=== PATIENT | male | born 1970 | race Hispanic/Latino ===

== ENCOUNTER → 2017-12-06 | Day surgery (SDC) | payer OTHER ==
[~2017-12-06] MED LIST: ATORVASTATIN CA20 MG PO; BACITRACIN ZINC 15 GM OINT ONE; BUPIVACAINE 0.25% 30ML SDV INJ ONE; BUPIVACAINE HCL 0.5% INJ 30 ML VIAL INJ ONE; CEFAZOLIN SOD 1 GM VIAL ONE; DEXAMETHASONE SOD PHOS INJ 4 MG/ML VIAL ONE; DOXYCYCLINE HY100 MG PO; EPHEDRINE SULFATE INJ 50 MG/10 ML SYR ONE; FENTANYL CITRATE/PF 100MCG/2 ML INJ ONE; FUROSEMIDE40 MG PO; IOPAMIDOL 610MG/1ML 300 MG/ML VIAL IV ONE; LEVEMIR100 UNIT/1 SC; LEVIMIR; LIDOCAINE HCL 2% LOCAL INJ 5 ML SDV VIAL INJ ONE; LOSARTAN POTASS25 MG PO; METOPROLOL TART50 MG PO; MIDAZOLAM HCL 2 MG/2 ML VIAL ONE; NEOSTIGMINE 1 MG/ML 10ML VIAL ONE; ONDANSETRON HCL INJ 2 MG/ML VIAL ONE; PROPOFOL IV EMULSION 10 MG/ML 20 ML VIAL ONE; SEVOFLURANE INHAL SOLN 250 ML PEN BTL ONE; SODIUM CHLORIDE 0.45% 1,000 ML ONE
--- NOTE | 2017-12-06 17:36 | Operative Report ---
DATE OF PROCEDURE: December 06, 2017 SERVICE: Urology PREOPERATIVE DIAGNOSIS 1. Phimosis. 2. Urinary tract infection. 3. History of Becky's gangrene of the scrotum. 4. Obesity. POSTOPERATIVE DIAGNOSIS 1. Phimosis. 2. Urinary tract infection. 3. History of Becky's gangrene of the scrotum. 4. Obesity. OPERATION PERFORMED 1. Cystoscopy and bilateral retrograde pyelograms under fluoroscopic control. 2. Interpretation of x-ray. Radiologist not present. 3. Supervision of fluoroscopy. Radiologist not present. 4. Circumcision. SURGEON: Brittney Sanchez MD TENSIONING MACHINE OPERATOR: None. ANESTHESIA: General. CLINICAL INDICATION NOTE: This is a 46-year-old patient, had gangrene necrosis of the scrotum that healed quite well. Patient has phimosis and history of UTI. He was brought for cystoscopy, retrograde and circumcision. Procedure was discussed with the patient. Potential benefit and complications discussed, explained and accepted. DESCRIPTION OF PROCEDURE AND FINDINGS: After proper level of anesthesia was achieved the patient was placed in lithotomy position, prepped and draped in sterile fashion. Urethra inspected, is unremarkable. The is patent. Bladder mucosa is normal. No tumor or foreign bodies identified. Cone-tip catheter was then used and bilateral retrogrades were done demonstrating normal upper tracts and ureters. No obstruction. Following this the bladder was emptied. Patient was re-prepped and circumcision was done. Dorsal slit was done first and then a ventral and excessive skin on both sides were excised. Any visible bleeding points were coagulated or ligated. The skin was closed with 3-0 chronic catgut interrupted as well as running. Following this, bacitracin ointment was placed and Tegaderm dressing. Patient tolerated the procedure well. A penile block was obtained after the procedure using Marcaine a quarter percent. He was transferred in satisfactory condition to recovery. No blood loss. He will be followed as outpatient. Job#: [id number] CEFERINO
== END | disposition home or self-care (01) ==
LOC: OR 08:41
PROVIDERS: ATTEND Urology
CPT/HCPCS: 36415; 74420; 82948; J0690; J1100; J2001; J2250; J2405; J2710

== ENCOUNTER → 2018-05-01 | Outpatient (CLI) | payer OTHER ==
[~2018-05-01] MED LIST changes: -BACITRACIN ZINC 15 GM OINT ONE; -BUPIVACAINE 0.25% 30ML SDV INJ ONE; -BUPIVACAINE HCL 0.5% INJ 30 ML VIAL INJ ONE; -CEFAZOLIN SOD 1 GM VIAL ONE; -DEXAMETHASONE SOD PHOS INJ 4 MG/ML VIAL ONE; -EPHEDRINE SULFATE INJ 50 MG/10 ML SYR ONE; -FENTANYL CITRATE/PF 100MCG/2 ML INJ ONE; -IOPAMIDOL 610MG/1ML 300 MG/ML VIAL IV ONE; -LIDOCAINE HCL 2% LOCAL INJ 5 ML SDV VIAL INJ ONE; -MIDAZOLAM HCL 2 MG/2 ML VIAL ONE; -NEOSTIGMINE 1 MG/ML 10ML VIAL ONE; -ONDANSETRON HCL INJ 2 MG/ML VIAL ONE; -PROPOFOL IV EMULSION 10 MG/ML 20 ML VIAL ONE; -SEVOFLURANE INHAL SOLN 250 ML PEN BTL ONE; -SODIUM CHLORIDE 0.45% 1,000 ML ONE
--- NOTE | 2018-05-01 16:26 | Diagnostic Imaging Report ---
EXAM: CT Abdomen and Pelvis WITHOUT contrast INDICATION: Microscopic hematuria. Hypertension. Diabetes. Appendectomy. Gangrene with necrotizing fasciitis COMPARISON: None. TECHNIQUE: Abdomen and pelvis were scanned utilizing a multidetector helical scanner from the lung base to the pubic symphysis without administration of IV contrast. Absence of intravenous contrast decreases sensitivity for detection of focal lesions and vascular pathology. Coronal and sagittal reformations were obtained. Routine protocol was performed. All CT scans are performed using radiation dose reduction techniques. Technical factors are evaluated and adjusted to ensure appropriate moderation of exposure. Automated dose management technology is applied to adjust the radiation dose to minimize exposure while achieving a diagnostic-quality image. IV CONTRAST: None. ORAL CONTRAST: Water RADIATION DOSE: Total DLP: 627.46 mGy*cm Estimated effective dose: (DLP x 0.015 x size factor) mSv COMPLICATIONS: None FINDINGS: LINES and TUBES: None. LOWER THORAX: Moderate sized pleural effusions with associated scarring/atelectasis in the lung bases. HEPATOBILIARY: No focal hepatic lesions. No biliary ductal dilation. GALLBLADDER: Gallstone in the lumen of the gallbladder. No wall thickening. SPLEEN: No splenomegaly. PANCREAS: No focal masses or ductal dilatation. ADRENALS: No adrenal nodules KIDNEYS/URETERS: No hydronephrosis. No cystic or solid mass lesions. No stones. GI TRACT: No abnormal distention, wall thickening, or evidence of bowel obstruction. PELVIC ORGANS/BLADDER: The urinary bladder and remainder of the visualized pelvic structures are otherwise grossly unremarkable. LYMPH NODES: Prominent inguinal, pelvic and retroperitoneal/periaortic lymph nodes are seen which may be reactive. VESSELS: Scattered vascular calcifications.. PERITONEUM / RETROPERITONEUM: No free air or fluid. BONES: Unremarkable. SOFT TISSUES: Mild anasarca. Mild inflammatory change surrounding the penis and anterior lower pelvis. IMPRESSION: 1. No urinary tract calcifications are seen. There is no hydronephrosis, hydroureter or perinephric fat stranding. 2. Moderate sized pleural effusion with associated scarring/atelectasis in the lung bases. 3. Gallstones without ductal dilatation seen. 4. Prominent inguinal, pelvic and retroperitoneal/periaortic lymph nodes are seen which may be reactive. 5. Mild anasarca. Mild inflammatory change surrounding the penis and anterior lower pelvis. Signed by: Dr. Preet Guillen M.D. on 05/01/2018 4:22 PM
== END ==
LOC: CT 15:02
PROVIDERS: ATTEND Urology
DX: R31.29 Other microscopic hematuria (principal)
CPT/HCPCS: 74176

== ENCOUNTER → 2021-12-30 | Day surgery (SDC) | payer OTHER ==
[~2021-12-30] MED LIST changes: +ACETAMINOPHEN 1000 MG/100 ML 100 ML IV ONE; +BUPIVACAINE HC 0.75% PF 10ML VIAL INJ ONE; +DEXAMETHASONE SOD PHOS INJ 4 MG/ML SDV ONE; +DIALYVITE 800-1 EAC1 PO; +FENTANYL CITRATE/PF 100MCG/2 ML INJ ONE; +GLYCOPYRROLATE INJ 0.2 MG/ML VIAL ONE; +LIDOCAINE HCL 2% LOCAL INJ 5 ML SDV VIAL INJ ONE; +MIDAZOLAM HCL 2 MG/2 ML VIAL ONE; +NEOSTIGMINE 1 MG/ML 10ML VIAL ONE; +ONDANSETRON HCL INJ 2MG/ML 2ML 2 MG/ML VIAL ONE; +PLAVIX75 MG PO; +POVIDONE IODINE 0.05% 0.05 % ML PO ONE; +PROPOFOL IV EMULSION 10 MG/ML 20 ML VIAL ONE; +RENVELA0.8 GM PO; +ROCURONIUM BROMIDE 10 MG/ML 5ML VIAL IV ONE; +SEVOFLURANE INHAL SOLN 250 ML PEN BTL ONE; +SODIUM CHLORIDE 0.9% 500ML 500 ML ONE; +ULTRACET TABLE1 EACH PO; +VITAMIN D350 MCG PO; +ZETIA10 MG PO
[2021-12-30 08:45] LABS: BASOPHILS # (AUTO) 0.1 (0.0-0.1); BASOPHILS % 0.6 % (0.0-1.0); EOSINOPHILS # (AUTO) 0.2 (0.0-0.4); EOSINOPHILS % 1.3 % (0.0-6.0); HEMATOCRIT 34.1 % (38.2-49.6); HEMOGLOBIN 10.6 g/dL (14.0-18.0); LYMPHOCYTES # (AUTO) 1.8 (1.0-3.2); LYMPHOCYTES % 11.8 % (18.0-39.1); MEAN CORPUSCULAR HEMOGLOBIN 30.5 pg (28-32); MEAN CORPUSCULAR HGB CONC 31.1 g/dL (31-35); MEAN CORPUSCULAR VOLUME 98.3 fL (81-99); MONOCYTES # (AUTO) 1.3 (0.2-0.8); MONOCYTES % 8.4 % (4.4-11.3); NEUTROPHILS # (AUTO) 12.1 (2.1-6.9); NEUTROPHILS % 77.5 % (38.7-80.0); PLATELET COUNT 359 x10e3/uL (140-360); RED BLOOD COUNT 3.47 x10e6/uL (4.3-5.7); RED CELL DISTRIBUTION WIDTH 14.1 % (11.7-14.4)
[2021-12-30 09:00] LABS: INR 1.08
[2021-12-30 09:01] LABS: PARTIAL THROMBOPLASTIN TIME 51.7 seconds (23.8-35.5)
[2021-12-30 09:07] LABS: ANION GAP 16.9 mmol/L (8-16); CALCIUM 8.2 mg/dL (8.4-10.2); CREATININE, SERUM 6.32 mg/dL (0.72-1.25); POTASSIUM 3.9 mmol/L (3.5-5.1)
[2021-12-30 10:55] VITALS: BP 115/72
== END | disposition home or self-care (01) ==
LOC: OR 07:50
PROVIDERS: ATTEND Surgery
DX: E11.22 Type 2 diabetes mellitus with diabetic chronic kidney disease (principal); I12.0 Hypertensive chronic kidney disease with stage 5 chronic kidney disease or end stage renal disease; N18.6 End stage renal disease; T85.611A Breakdown (mechanical) of intraperitoneal dialysis catheter, initial encounter; K66.0 Peritoneal adhesions (postprocedural) (postinfection); F41.9 Anxiety disorder, unspecified; Y83.8 Other surgical procedures as the cause of abnormal reaction of the patient, or of later complication, without mention of misadventure at the time of the procedure; Z88.6 Allergy status to analgesic agent; Z88.8 Allergy status to other drugs, medicaments and biological substances; Z01.810 Encounter for preprocedural cardiovascular examination; Z01.812 Encounter for preprocedural laboratory examination; Z20.822 Contact with and (suspected) exposure to COVID-19; Z79.82 Long term (current) use of aspirin; Z79.02 Long term (current) use of antithrombotics/antiplatelets; Z79.899 Other long term (current) drug therapy; Z99.2 Dependence on renal dialysis
CPT/HCPCS: 36415; 49325; 71046; 80048; 82948; 85025; 85610; 85730; 93005; C1713; J0131; J0690; J1100; J2001; J2250; J2405; J2704; J2710; J3010; J7040; U0002

== ENCOUNTER 2024-12-02 18:17 | Emergency (ER) | payer MEDICARE, OTHER ==
[~2024-12-02] VITALS: Ht 182.9 cm; Wt 88.5 kg
[~2024-12-02 18:17] MED LIST changes: -ACETAMINOPHEN 1000 MG/100 ML 100 ML IV ONE; -BUPIVACAINE HC 0.75% PF 10ML VIAL INJ ONE; +CARVEDILOL12.5 MG PO; -DEXAMETHASONE SOD PHOS INJ 4 MG/ML SDV ONE; +ENTRESTO 97 MG1 EACH PO; -FENTANYL CITRATE/PF 100MCG/2 ML INJ ONE; -GLYCOPYRROLATE INJ 0.2 MG/ML VIAL ONE; -LIDOCAINE HCL 2% LOCAL INJ 5 ML SDV VIAL INJ ONE; -MIDAZOLAM HCL 2 MG/2 ML VIAL ONE; -NEOSTIGMINE 1 MG/ML 10ML VIAL ONE; -ONDANSETRON HCL INJ 2MG/ML 2ML 2 MG/ML VIAL ONE; -POVIDONE IODINE 0.05% 0.05 % ML PO ONE; -PROPOFOL IV EMULSION 10 MG/ML 20 ML VIAL ONE; -ROCURONIUM BROMIDE 10 MG/ML 5ML VIAL IV ONE; -SEVOFLURANE INHAL SOLN 250 ML PEN BTL ONE; -SODIUM CHLORIDE 0.9% 500ML 500 ML ONE; +ULTRAM 50MG50 MG PO
[2024-12-02 19:50] LABS: BASOPHILS # (AUTO) 0.1 (0.0-0.1); BASOPHILS % 1.4 % (0.0-1.0); EOSINOPHILS % 0.4 % (0.0-6.0); LYMPHOCYTES # (AUTO) 0.2 (1.0-3.2); LYMPHOCYTES % 4.5 % (18.0-39.1); MEAN CORPUSCULAR HEMOGLOBIN 28.3 pg (28-32); MEAN CORPUSCULAR HGB CONC 33.2 g/dL (31-35); MEAN CORPUSCULAR VOLUME 85.4 fL (81-99); MONOCYTES # (AUTO) 0.3 (0.2-0.8); MONOCYTES % 6.9 % (4.4-11.3); NEUTROPHILS # (AUTO) 4.3 (2.1-6.9); NEUTROPHILS % 86.4 % (38.7-80.0); PLATELET COUNT 373 x10e3/uL (140-360); RED BLOOD COUNT 2.33 x10e6/uL (4.3-5.7); RED CELL DISTRIBUTION WIDTH 14.4 % (11.7-14.4); WHITE BLOOD COUNT 4.94 x10e3/uL (4.8-10.8)
[2024-12-02 20:03] LABS: HEMATOCRIT 19.9 % (38.2-49.6); HEMOGLOBIN 6.6 g/dL (14.0-18.0)
[2024-12-02 20:09] LABS: ALBUMIN 3.4 g/dL (3.5-5.0); ANION GAP 15.1 mmol/L (8-16); BILIRUBIN,TOTAL 1.3 mg/dL (0.2-1.2); CALCIUM 8.6 mg/dL (8.4-10.2); CREATININE, SERUM 2.17 mg/dL (0.72-1.25); TOTAL PROTEIN 6.9 g/dL (6.5-8.1)
[2024-12-02 20:15] LABS: TROPONIN I 0.028 ng/mL (0-0.300)
[2024-12-02 20:33] LABS: POTASSIUM 6.1 mmol/L (3.5-5.1)
[2024-12-02 21:15] VITALS: PULSE 87; RESP 18; O2SAT 100
[2024-12-02] MEDS ORDERED: ONDANSETRON HCL INJ 2MG/ML 2ML 2 MG/ML VIAL IV PRN (21:15)
[2024-12-02] MEDS ORDERED: SODIUM CHLORIDE FLUSH 10 ML SYR INJ PRN (21:15)
[2024-12-02] MEDS: ALBUTEROL SULF 0.083% NEB SOLN 3 ML NEB NEB STA (21:15)
[2024-12-02] MEDS ORDERED: FUROSEMIDE INJ 10 MG/ML 4 ML VIAL ONE (21:21)
[2024-12-02] MEDS: SODIUM BICARBONATE 8.4% INJ 50 ML SYR IV STA (21:24)
[2024-12-02] MEDS: CALCIUM GLUC 1 G/50 ML NACL 50 ML IV ONE (21:24)
[2024-12-02] MEDS: DEXTROSE 50% SYRINGE 50 ML IV ONE (21:24)
[2024-12-02] MEDS: FUROSEMIDE INJ 10 MG/ML 10 ML VIAL IV ONE (21:26)
[2024-12-02] MEDS: INSULIN REGULAR, HUMAN 100 UNIT/1 ML IV ONE (21:27)
[2024-12-02 23:16] LABS: ANION GAP 18.5 mmol/L (8-16); CREATININE, SERUM 2.18 mg/dL (0.72-1.25)
[2024-12-02 23:17] LABS: POTASSIUM 4.5 mmol/L (3.5-5.1)
[2024-12-02 23:22] LABS: TROPONIN I 0.026 ng/mL (0-0.300)
[2024-12-02] MEDS ORDERED: SODIUM CHLORIDE 0.9% 250ML 250 ML ONE (23:26)
[2024-12-02] MEDS: SODIUM CHLORIDE 0.9% 250ML 250 ML IV ONE (23:43)
[2024-12-03] MEDS ORDERED: SODIUM CHLORIDE 0.9% 250ML 250 ML ONE (02:07)
[2024-12-03 04:15] VITALS: PULSE 86; RESP 16; TEMP 98
[2024-12-03 04:57] VITALS: BP 115/63; PULSE 86; RESP 16; TEMP 98; O2SAT 100
== END 2024-12-03 05:04 | disposition home or self-care (01) ==
LOC: ER 18:30 → ERHOLD 21:04 → UNDOADMOB 21:04 → ER 12-03 05:04
DX: R53.1 Weakness (principal); I12.0 Hypertensive chronic kidney disease with stage 5 chronic kidney disease or end stage renal disease; N18.6 End stage renal disease; Z99.2 Dependence on renal dialysis; E78.5 Hyperlipidemia, unspecified; R53.81 Other malaise; Z89.512 Acquired absence of left leg below knee; Z89.511 Acquired absence of right leg below knee; Z94.0 Kidney transplant status; R94.31 Abnormal electrocardiogram [ECG] [EKG]
CPT/HCPCS: 36415; 71045; 80048; 80053; 82550; 83690; 83880; 84484; 85025; 86850; 86900; 86920; 93005; 94640; 94799; 99284; J1938; J7050 ×2; J7799; P9016

== ENCOUNTER → 2025-01-14 | Outpatient (REF) | payer MEDICARE, OTHER ==
[~2025-01-14] MED LIST changes: +ARANESP40 MCG/0.4; +ASPIRIN81 MG PO; +ATOVAQUONE750 MG/5 M PO; +FENTANYL CITRATE/PF 100MCG/2 ML INJ ONE; +LIDOCAINE HCL 1% 30ML-PF VIAL ONE; +PREDNISONE5 MG PO; +PROTONIX20 MG PO; +SODIUM CHLORIDE 0.9% 250ML 250 ML ONE; +SODIUM CHLORIDE 0.9% 500ML 500 ML ONE; +TACROLIMUS1 MG PO; +TOUJEO SOL300 UNIT/1
[2025-01-14 07:51] LABS: BASOPHILS # (AUTO) 0.1 (0.0-0.1); BASOPHILS % 1.1 % (0.0-1.0); EOSINOPHILS # (AUTO) 0.2 (0.0-0.4); EOSINOPHILS % 2.3 % (0.0-6.0); HEMATOCRIT 22.5 % (38.2-49.6); LYMPHOCYTES % 11.6 % (18.0-39.1); MEAN CORPUSCULAR HEMOGLOBIN 31.3 pg (28-32); MEAN CORPUSCULAR HGB CONC 31.6 g/dL (31-35); MEAN CORPUSCULAR VOLUME 99.1 fL (81-99); MONOCYTES # (AUTO) 0.8 (0.2-0.8); NEUTROPHILS # (AUTO) 6.3 (2.1-6.9); NEUTROPHILS % 74.1 % (38.7-80.0); PLATELET COUNT 528 x10e3/uL (140-360); RED BLOOD COUNT 2.27 x10e6/uL (4.3-5.7); RED CELL DISTRIBUTION WIDTH 24.1 % (11.7-14.4); WHITE BLOOD COUNT 8.44 x10e3/uL (4.8-10.8)
[2025-01-14 07:56] LABS: HEMOGLOBIN 7.1 g/dL (14.0-18.0)
[2025-01-14 08:07] LABS: PROTHROMBIN TIME 14.1 seconds (11.9-14.5)
[2025-01-14 08:08] LABS: PARTIAL THROMBOPLASTIN TIME 38.6 seconds (23.8-35.5)
== END ==
LOC: CT 07:26
PROVIDERS: ATTEND Internal Medicine
DX: E83.111 Hemochromatosis due to repeated red blood cell transfusions (principal)
CPT/HCPCS: 36415; 38221; 85025; 85610; 85730; 88161; 88305; 88311; 88342; J2003; J3010; J7040; J7050; 38222; 88300; 99152